=== PATIENT | male | born 1950 | race Caucasian/White ===

== ENCOUNTER 2020-11-19 06:43 | Emergency (ER) | payer MEDICARE, OTHER ==
[2020-11-19 06:49] VITALS: BP 161/94; PULSE 97; RESP 20; TEMP 97.7
[2020-11-19] MEDS ORDERED: SODIUM CHLORIDE 0.9% 1,000 ML IV STA (07:01)
[2020-11-19 07:23] LABS: Basophils % (A) 0 %; Eosinophils # (A) 0.1 k/uL (0-0.7); Eosinophils % (A) 1 %; HCT 45.3 % (39.0-53.0); HGB 15.7 gm/dL (13.0-17.5); Lymphocytes % (A) 9 %; MCH 31.5 pg (25.0-35.0); MCHC 34.7 g/dL (31.0-37.0); MCV 90.7 fL (80.0-100.0); Mean Platelet Volume 7.7; Monocytes # (A) 0.8 k/uL (0-1.0); Monocytes % (A) 7 %; Neutrophils # (A) 9.2 k/uL (1.3-7.7); Neutrophils % (A) 81 %; Platelet Count 181 k/uL (150-450); RBC 4.99 m/uL (4.30-5.90); RDW 12.2 % (11.5-15.5); WBC 11.4 k/uL (3.8-10.6)
[2020-11-19 07:40] LABS: Appearance,Urine Clear (Clear); Bacteria,Urine Rare /hpf; Bilirubin,Urine Negative (Negative); Blood,Urine Moderate (Negative); Color,Urine Yellow; Glucose,Urine (UA) Negative (Negative); Hyaline Casts,Urine 3 /lpf (0-2); Ketones,Urine 1+ (Negative); Leukocyte Esterase,Urine Negative (Negative); Mucus,Urine Occasional /hpf; Nitrite,Urine Negative (Negative); Protein,Urine Trace (Negative); RBC,Urine 52 /hpf (0-5); Specific Gravity,Urine 1.021 (1.001-1.035); Squamous Epithelial Cell,Urine <1 /hpf (0-4); Urobilinogen,Urine <2.0 mg/dL (<2.0); WBC,Urine 6 /hpf (0-5)
[2020-11-19 07:41] LABS: Albumin 4.7 g/dL (3.5-5.0); Calcium 9.8 mg/dL (8.4-10.2); Magnesium 2.1 mg/dL (1.6-2.3); Potassium 3.9 mmol/L (3.5-5.1); Total Protein 7.6 g/dL (6.3-8.2)
[2020-11-19 07:47] LABS: Prothrombin Time 10.7 sec (9.0-12.0)
[2020-11-19 08:16] LABS: Partial Thromboplastin Time 21.2 sec (22.0-30.0)
--- NOTE | 2020-11-19 08:18 | CT ---
EXAMINATION TYPE: CT abdomen pelvis wo con DATE OF EXAM: 11/19/2020 COMPARISON: None HISTORY: Abdominal pain with constipation for 2 days TECHNIQUE: CT scan of the abdomen and pelvis without contrast CT DLP: 531.3 mGycm Automated exposure control for dose reduction was used. FINDINGS: Lack of IV contrast and motion limit evaluation. Partially calcified right lower lobe 6 mm nodule. 4 mm nodule in the right upper lobe series 204 imag e 6. Opacities in the right lower lobe medially noted. Liver, spleen, pancreas and adrenal glands are grossly unremarkable for noncontrast enhanced CT. No abnormal intrahepatic biliary ductal dilatation. The extrahepatic common duct has a diameter of 7 to 8mm. There is a 2 mm calculus at the right ureterovesical junction with mild right hydroureter and mild ri ght hydronephrosis. No Left-sided hydronephrosis. There is mild right perinephric stranding or fluid. Urinary bladder is unremarkable. There is no intestinal obstruction, pneumoperitoneum or ascites. There is pancolonic diverticulosis with no complicated diverticulitis, minimal fat stranding near rig ht descending colon noted. The appendix appears normal. Nonaneurysmal aorta. 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 No enlarged retroperitoneal or pelvic lymph nodes seen. No suspicious osseous lesion. Severe narrowing L5-S1. Degenerative changes in both hip joints. IMPRESSION: 1. RIGHT URETEROVESICAL JUNCTION 2 MM CALCULUS WITH MILD RIGHT HYDROURETER AND HYDRONEPHROSIS. MILD R IGHT PERINEPHRIC STRANDING OR FLUID CORRELATE COULD SUGGEST PYELONEPHRITIS IN THE RIGHT CLINICAL SETT ING. 2. MODERATE AMOUNT OF STOOL WITH MINIMAL STRANDING AROUND THE ASCENDING COLON AND PANDIVERTICULOSIS, MILD ACUTE DIVERTICULITIS CANNOT BE ENTIRELY EXCLUDED THOUGH THE STRANDING COULD ALSO BE RELATED TO M OTION ARTIFACT. 3. PROMINENCE OF THE EXTRAHEPATIC COMMON BILE DUCT PROBABLY NORMAL FOR THE PATIENT'S AGE, CORRELATION WITH SERUM BILIRUBIN AND LIVER FUNCTION TESTS MAY BE OF ADDITIONAL BENEFIT.
--- NOTE | 2020-11-19 08:21 | ED ---
General Adult HPI - General Chief complaint: Arrhythmia/Palpitations Stated complaint: arrhythmia,flank pain Time Seen by Provider: 11/19/20 06:49 Source: patient, RN notes reviewed Mode of arrival: ambulatory Limitations: no limitations - History of Present Illness Initial comments: This a 70-year-old male presents emergency Department with chief complaint of right-sided abdominal pain and right flank pain. Patient states started yesterday has worsened. Patient states that he does not hurt with movement no trauma he has not noticed any dysuria or any noted hematuria no significant change in bowel habits. Patient states he's had no prior abdominal surgery did have back surgery 30 years ago. Patient states she's also noticed that he had some palpitations in which he states that he checked his pulses morning states it felt irregular he has no associated chest pain. No fevers or chills. - Related Data Allergies Allergy/AdvReac Type Severity Reaction Status Date / Time No Known Allergies Allergy Verified 11/19/20 06:49 Review of Systems ROS Statement: Those systems with pertinent positive or pertinent negative responses have been documented in the HPI. ROS Other: All systems not noted in ROS Statement are negative. Past Medical History Past Medical History: Hyperlipidemia History of Any Multi-Drug Resistant Organisms: None Reported Past Surgical History: No Surgical Hx Reported, Back Surgery Smoking Status: Never smoker Past Alcohol Use History: None Reported Past Drug Use History: None Reported General Exam Limitations: no limitations General appearance: alert, in no apparent distress Head exam: Present: atraumatic, normocephalic, normal inspection Eye exam: Present: normal appearance, PERRL, EOMI. Absent: scleral icterus, co njunctival injection, periorbital swelling ENT exam: Present: normal exam, normal oropharynx, mucous membranes moist Neck exam: Present: normal inspection, full ROM. Absent: tenderness, meningismus, lymphadenopathy Respiratory exam: Present: normal lung sounds bilaterally. Absent: respiratory distress, wheezes, rales, rhonchi, stridor Cardiovascular Exam: Present: regular rate, normal rhythm, normal heart sounds. Absent: systolic murmur, diastolic murmur, rubs, gallop, clicks GI/Abdominal exam: Present: soft, tenderness, normal bowel sounds. Absent: distended, guarding, rebound, rigid Back exam: Present: CVA tenderness (R). Absent: CVA tenderness (L) Neurological exam: Present: alert Skin exam: Present: warm, dry, intact, normal color. Absent: rash Course Vital Signs 11/19/20 06:44 Temperature 97.7 F Pulse Rate 97 Respiratory 20 Rate Blood Pressure 161/94 O2 Sat by Pulse 98 Oximetry EKG Findings - EKG Comments: EKG Findings:: EKG performed at 17:55 sinus rhythm with noted PA-C rate of 94 MT 170 QRS 96 QT/QTC 378/472 Medical Decision Making - Medical Decision Making CT shows evidence of kidney stone on the right patient's pain is greatly improved urinalysis shows hematuria no evidence of infection. Patient CT showed possibility of diverticulitis no patient is asymptomatic and this is felt less likely. Patient will follow-up urology if no improvement return parameters were discussed. - Lab Data Result diagrams: 11/19/20 07:05 11/19/20 07:05 Lab Results 11/19/20 11/19/20 11/19/20 Range/Units 07:05 07:05 07:05 WBC 11.4 H (3.8-10.6) k/uL RBC 4.99 (4.30-5.90) m/uL Hgb 15.7 (13.0-17.5) gm/dL Hct 45.3 (39.0-53.0) % MCV 90.7 (80.0-100.0) fL MCH 31.5 (25.0-35.0) pg MCHC 34.7 (31.0-37.0) g/dL RDW 12.2 (11.5-15.5) % Plt Count 181 (150-450) k/uL MPV 7.7 Neutrophils % 81 % Lymphocytes % 9 % Monocytes % 7 % Eosinophils % 1 % Basophils % 0 % Neutrophils # 9.2 H (1.3-7.7) k/uL Lymphocytes # 1.0 (1.0-4.8) k/uL Monocytes # 0.8 (0-1.0) k/uL Eosinophils # 0.1 (0-0.7) k/uL Basophils # 0.0 (0-0.2) k/uL PT 10.7 (9.0-12.0) sec INR 1.0 (<1.2) APTT 21.2 L (22.0-30.0) sec Sodium 140 (137-145) mmol/L Potassium 3.9 (3.5-5.1) mmol/L Chloride 105 (98-107) mmol/L Carbon Dioxide 25 (22-30) mmol/L Anion Gap 10 mmol/L BUN 15 (9-20) mg/dL Creatinine 1.20 (0.66-1.25) mg/dL Est GFR (CKD-EPI)AfAm 71 (>60 ml/min/1.73 sqM) Est GFR (CKD-EPI)NonAf 61 (>60 ml/min/1.73 sqM) Glucose 157 H (74-99) mg/dL Calcium 9.8 (8.4-10.2) mg/dL Magnesium 2.1 (1.6-2.3) mg/dL Total Bilirubin 1.0 (0.2-1.3) mg/dL AST 34 (17-59) U/L ALT 24 (4-49) U/L Alkaline Phosphatase 62 (38-126) U/L Troponin I (0.000-0.034) ng/mL Total Protein 7.6 (6.3-8.2) g/dL Albumin 4.7 (3.5-5.0) g/dL Urine Color Urine Appearance (Clear) Urine pH (5.0-8.0) Ur Specific [place] (1.001-1.035) Urine Protein (Negative) Urine Glucose (UA) (Negative) Urine Ketones (Negative) Urine Blood (Negative) Urine Nitrite (Negative) Urine Bilirubin (Negative) Urine Urobilinogen (<2.0) mg/dL Ur Leukocyte Esterase (Negative) Urine RBC (0-5) /hpf Urine WBC (0-5) /hpf Ur Squamous Epith Cells (0-4) /hpf Urine Bacteria (None) /hpf Hyaline Casts (0-2) /lpf Urine Mucus (None) /hpf 11/19/20 11/19/20 Range/Units 07:05 07:05 WBC (3.8-10.6) k/uL RBC (4.30-5.90) m/uL Hgb (13.0-17.5) gm/dL Hct (39.0-53.0) % MCV (80.0-100.0) fL MCH (25.0-35.0) pg MCHC (31.0-37.0) g/dL RDW (11.5-15.5) % Plt Count (150-450) k/uL MPV Neutrophils % % Lymphocytes % % Monocytes % % Eosinophils % % Basophils % % Neutrophils # (1.3-7.7) k/uL Lymphocytes # (1.0-4.8) k/uL Monocytes # (0-1.0) k/uL Eosinophils # (0-0.7) k/uL Basophils # (0-0.2) k/uL PT (9.0-12.0) sec INR (<1.2) APTT (22.0-30.0) sec Sodium (137-145) mmol/L Potassium (3.5-5.1) mmol/L Chloride (98-107) mmol/L Carbon Dioxide (22-30) mmol/L Anion Gap mmol/L BUN (9-20) mg/dL Creatinine (0.66-1.25) mg/dL Est GFR (CKD-EPI)AfAm (>60 ml/min/1.73 sqM) Est GFR (CKD-EPI)NonAf (>60 ml/min/1.73 sqM) Glucose (74-99) mg/dL Calcium (8.4-10.2) mg/dL Magnesium (1.6-2.3) mg/dL Total Bilirubin (0.2-1.3) mg/dL AST (17-59) U/L ALT (4-49) U/L Alkaline Phosphatase (38-126) U/L Troponin I <0.012 (0.000-0.034) ng/mL Total Protein (6.3-8.2) g/dL Albumin (3.5-5.0) g/dL Urine Color Yellow Urine Appearance Clear (Clear) Urine pH 5.0 (5.0-8.0) Ur Specific [place] 1.021 (1.001-1.035) Urine Protein Trace H (Negative) Urine Glucose (UA) Negative (Negative) Urine Ketones 1+ H (Negative) Urine Blood Moderate H (Negative) Urine Nitrite Negative (Negative) Urine Bilirubin Negative (Negative) Urine Urobilinogen <2.0 (<2.0) mg/dL Ur Leukocyte Esterase Negative (Negative) Urine RBC 52 H (0-5) /hpf Urine WBC 6 H (0-5) /hpf Ur Squamous Epith Cells <1 (0-4) /hpf Urine Bacteria Rare H (None) /hpf Hyaline Casts 3 H (0-2) /lpf Urine Mucus Occasional H (None) /hpf Disposition Clinical Impression: Right ureteral calculus, Palpitations Disposition: HOME SELF-CARE Condition: Stable Instructions (If sedation given, give patient instructions): Kidney Stones (ED) Additional Instructions: Please return to the Emergency Department if symptoms worsen or any other concerns. Is patient prescribed a controlled substance at d/c from ED?: No Referrals: Shawn Gonzalez MD [Primary Care Provider] - 1-2 days Mata Dickerson MD [STAFF PHYSICIAN] - 1-2 days Time of Disposition: 08:27
[2020-11-19] MEDS ORDERED: ACET/COD 300 MG/30 MG STARTER PACK 6 TAB BTL PO STA (08:27)
[2020-11-19] MEDS ORDERED: TAMSULOSIN 0.4 MG CAP.ER.24H PO STA (08:27)
[2020-11-19] MEDS ORDERED: ONDANSETRON 4 MG ODT STARTER PACK 2 TAB BTL PO STA (08:27)
== END 2020-11-19 08:45 | disposition home or self-care (01) ==
LOC: EC 06:43
DX: N13.2 Hydronephrosis with renal and ureteral calculous obstruction (principal)
CPT/HCPCS: 36415; 93005; 80053; 83735; 84484; 85025; 85610; 85730; 81001; 74176; 99284; 96360; S0119